=== PATIENT | male | born 1970 ===

== ENCOUNTER 2023-04-15 06:21 | Emergency (ER) | payer OTHER ==
--- NOTE | 2023-04-15 06:27 | ED ---
Chest Pain HPI - General Source: patient, police, EMS, RN notes reviewed Mode of arrival: EMS Limitations: no limitations - History of Present Illness MD Complaint: chest pain Onset/Timin -: week(s) <Hallie Blount - Last Filed: 04/15/23 06:50> <Morris Laguna - Last Filed: 04/15/23 10:09> - General Chief Complaint: Chest Pain Stated Complaint: Chest Pain Time Seen by Provider: 04/15/23 06:25 - History of Present Illness Initial Comments: This is a 52 year old male who presents to the emergency department for chest pain x3 weeks. Patient presents from [facility]. Per EMS, they did an EKG there and were concerned about changes, however EMS did not believe there to be any ST changes. He denies any shortness of breath or diaphoresis. EMS gave him 3 nitroglycerin tablets and 1 ASA and his pain reduced from an 8 to a 5. (Hallie Blount) - Related Data Home Medications Medication Instructions Recorded Confirmed Aspirin EC [Ecotrin Low Dose] 81 mg PO DAILY 04/15/23 04/15/23 Atorvastatin [Lipitor] 40 mg PO HS 04/15/23 04/15/23 Insulin NPH Human Isophane 10 units SQ HS 04/15/23 04/15/23 [NovoLIN N] Insulin Regular [humuLIN R] See Protocol SQ ACHS 04/15/23 04/15/23 amLODIPine [Norvasc] 10 mg PO DAILY 04/15/23 04/15/23 cloNIDine HCL [Catapres] 0.1 mg PO ONCE 04/15/23 04/15/23 metFORMIN HCL 500 mg PO BID 04/15/23 04/15/23 Allergies Allergy/AdvReac Type Severity Reaction Status Date / Time No Known Allergies Allergy Unverified 04/15/23 08:32 Review of Systems ROS Other: All systems not noted in ROS Statement are negative. <Hallie Blount - Last Filed: 04/15/23 06:50> ROS Other: All systems not noted in ROS Statement are negative. <Morris Laguna - Last Filed: 04/15/23 10:09> ROS Statement: Those systems with pertinent positive or pertinent negative responses have been documented in the HPI. General Exam <Hallie Blount - Last Filed: 04/15/23 06:50> General appearance: alert, in no apparent distress Head exam: Present: atraumatic, normocephalic Eye exam: Present: normal appearance, PERRL ENT exam: Present: normal exam Neck exam: Present: normal inspection. Absent: tenderness, meningismus Respiratory exam: Present: normal lung sounds bilaterally. Absent: respiratory distress, wheezes Cardiovascular Exam: Present: regular rate, normal rhythm GI/Abdominal exam: Present: soft. Absent: distended, tenderness, guarding Extremities exam: Present: normal inspection, normal capillary refill Neurological exam: Present: alert, oriented X3, CN II-XII intact. Absent: motor sensory deficit Skin exam: Present: warm, dry, intact. Absent: cyanosis <Morris Laguna - Last Filed: 04/15/23 10:09> - General Exam Comments Initial Comments: Visual Physical Exam Vital signs reviewed General: Well-appearing, nontoxic, no acute distress. Head: Normocephalic, atraumatic Eyes: PERRLA, EOMI ENT: Airway patent Chest: Nonlabored breathing Skin: No visual rash, normal skin tone Neuro: Alert and oriented 3 Musculoskeletal: No gross abnormalities (Hallie Blount) Course <Morris Laguna - Last Filed: 04/15/23 10:09> Vital Signs 04/15/23 04/15/23 06:24 08:25 Temperature 98 F Pulse Rate 79 60 Respiratory 18 18 Rate Blood Pressure 124/73 144/85 O2 Sat by Pulse 100 99 Oximetry - Reevaluation(s) Reevaluation #1: 04/15/23 08:47 I was able to obtain full history through a filling layer up, she reports a remote injury to the left clavicle, clavicle fracture. He states that his pain is improved with hot shower. He's had no diaphoresis. No vomiting. No radiating symptoms. Pain is consistent with muscular skeletal pain rather than ACS. (Morris Laguna) Chest Pain [facility] <Hallie Blount - Last Filed: 04/15/23 06:50> <Morris Laguna - Last Filed: 04/15/23 10:09> - [facility] I performed the QuickNote portion of this chart. Signed aHllie Blount PA-C. (Hallie Blount) Was pt. sent in by a medical professional or institution ([facility], [employer], urgent care, hospital, or [facility]...) When possible be specific @ -No Did you speak to anyone other than the patient for history (EMS, parent, family, police, friend...)? What history was obtained from this source @ -No Did you review nursing and triage notes (agree or disagree)? Why? @ -I reviewed and agree with nursing and triage notes Were old charts reviewed (outside hosp., previous admission, EMS record, old EKG, old radiological studies, urgent care reports/EKG's, [facility] records)? Report findings @ -No old charts were reviewed Differential Diagnosis (chest pain, altered mental status, abdominal pain women, abdominal pain men, vaginal bleeding, weakness, fever, dyspnea, syncope, headache, dizziness, GI bleed, back pain, seizure, CVA, palpatations, mental health, musculoskeletal)? @ Differential Chest Pain: Stable Angina, Unstable Angina, STEMI, NSTEMI Aortic Dissection, Pneumothorax, Musculoskeletal, Esophageal Spasm GERD, Cholecystitis, Pancreatitis, Zoster, this is not meant to be an all-inclusive list. EKG interpreted by me (3pts min.). @ Sinus rhythm rate of 76, AZ interval 160, QRS duration 105, QTC [address] segment elevation, possible ST segment depression in lead 3. X-rays interpreted by me (1pt min.). @ CXR x-ray negative for acute cardio pulmonary findings CT interpreted by me (1pt min.). @ -None done U/S interpreted by me (1pt. min.). @ -None done What testing was considered but not performed or refused? (CT, X-rays, U/S, labs)? Why? @ -None What meds were considered but not given or refused? Why? @ -None Did you discuss the management of the patient with other professionals (professionals i.e. [facility], [employer], lab, RT, psych nurse, social media campaign manager, financial internship, teacher, inshore undersea warfare officer, renal case manager)? Give summary @ -No Was smoking cessation discussed for >3mins.? @ -No Was critical care preformed (if so, how long)? @ -No Were there social determinants of health that impacted care today? How? (Homelessness, low income, unemployed, alcoholism, drug addiction, transportation, low edu. Level, literacy, decrease access to med. care, [facility], rehab)? @ -No Was there de-escalation of care discussed even if they declined (Discuss DNR or withdrawal of care, Hospice)? DNR status @ -No What co-morbidities impacted this encounter? (DM, HTN, Smoking, COPD, CAD, Cancer, CVA, ARF, Chemo, Hep., AIDS, mental health diagnosis, sleep apnea, morbid obesity)? @ -HTN and diabetes Was patient admitted / discharged? Hospital course, mention meds given and route, prescriptions, significant lab abnormalities, going to OR and other pertinent info. @ Patient presenting with 3 weeks of left upper chest pain. Pain is improved with heat, worsened by the cold. No typical features. EKG is sinus without ST segment elevation. Chest x-ray is clear. He is anemic with no baseline for comparison and has a mildly elevated BUN/creatinine. Troponin is negative 2. Pain is more consistent with a musculoskeletal cause. He is stable for discharge with return parameters at this time. He will take Tylenol for pain. Undiagnosed new problem with uncertain prognosis? @ -No Drug Therapy requiring intensive monitoring for toxicity (Heparin, Nitro, Insulin, Cardizem)? @ -No Were any procedures done? @ -No Diagnosis/symptom? @ -[Musculoskeletal chest pain Acute, or Chronic, or Acute on Chronic? @ Chronic Uncomplicated (without systemic symptoms) or Complicated (systemic symptoms)? @ -default Side effects of treatment? @ -No Exacerbation, Progression, or Severe Exacerbation? @ -No Poses a threat to life or bodily function? How? (Chest pain, [place], MA, pneumonia, PE, COPD, DKA, ARF, appy, cholecystitis, CVA, Diverticulitis, Homicidal, Suicidal, threat to staff... and all critical care pts) @ -No (Morris Laguna) Disposition <Hallie Blount - Last Filed: 04/15/23 06:50> Is patient prescribed a controlled substance at d/c from ED?: No Time of Disposition: 10:09 <Morris Laguna - Last Filed: 04/15/23 10:09> Clinical Impression: Chest pain Disposition: HOME SELF-CARE Condition: Fair Instructions (If sedation given, give patient instructions): Chest Pain (ED), Costochondritis (ED) Additional Instructions: Please take Tylenol for pain. Referrals: None,Stated [Primary Care Provider] - 1-2 days
[2023-04-15 06:41] VITALS: RESP 18
[2023-04-15 06:45] LABS: Basophils % (A) 0 %; Eosinophils # (A) 0.1 k/uL (0-0.7); Eosinophils % (A) 2 %; HCT 27.2 % (39.0-53.0); HGB 9.5 gm/dL (13.0-17.5); Lymphocytes # (A) 1.2 k/uL (1.0-4.8); Lymphocytes % (A) 23 %; MCH 31.2 pg (25.0-35.0); MCHC 35.1 g/dL (31.0-37.0); Mean Platelet Volume 7.4; Monocytes # (A) 0.3 k/uL (0-1.0); Monocytes % (A) 6 %; Neutrophils # (A) 3.5 k/uL (1.3-7.7); Neutrophils % (A) 67 %; Platelet Count 264 k/uL (150-450); RBC 3.05 m/uL (4.30-5.90); RDW 13.1 % (11.5-15.5); WBC 5.2 k/uL (3.8-10.6)
[2023-04-15 07:03] LABS: ALT 29 U/L (4-49); AST 34 U/L (17-59); African American GFR (CKD) 67 (>60 ml/min/1.73 sqM); Albumin 3.1 g/dL (3.5-5.0); Alkaline Phosphatase 108 U/L (38-126); Anion Gap 3 mmol/L; Blood Urea Nitrogen 29 mg/dL (9-20); Calcium 8.4 mg/dL (8.4-10.2); Carbon Dioxide 24 mmol/L (22-30); Chloride 108 mmol/L (98-107); Glucose 134 mg/dL (74-99); Lipase 214 U/L (23-300); Magnesium 2.1 mg/dL (1.6-2.3); Non-African American GFR(CKD) 58 (>60 ml/min/1.73 sqM); Potassium 4.2 mmol/L (3.5-5.1); Sodium 135 mmol/L (137-145); Total Bilirubin 0.4 mg/dL (0.2-1.3); Total Protein 5.6 g/dL (6.3-8.2)
[2023-04-15 07:05] LABS: INR 1.1 (<1.2); Partial Thromboplastin Time 22.8 sec (22.0-30.0)
--- NOTE | 2023-04-15 07:39 | XR ---
EXAMINATION TYPE: XR chest 2V DATE OF EXAM: 04/15/2023 COMPARISON: NONE HISTORY: Chest pain TECHNIQUE: Frontal and lateral views of the chest are obtained. FINDINGS: There is no focal air space opacity, pleural effusion, or pneumothorax seen. The cardiac silhouette size is within normal limits. The osseous structures are intact. IMPRESSION: No acute process.
[2023-04-15] MEDS ORDERED: HYDROcodone/APAP 5-325MG 1 EACH TAB PO STA (08:46)
[2023-04-15 10:17] VITALS: BP 146/82; PULSE 76; TEMP 97.8
== END 2023-04-15 10:21 | disposition home or self-care (01) ==
LOC: EC 06:21
DX: R07.89 Other chest pain (principal); Z20.822 Contact with and (suspected) exposure to COVID-19
CPT/HCPCS: 36415; 71046; 80053; 83690; 83735; 84484; 85025; 85610; 85730; 87636; 93005; 99285